=== PATIENT | male | born 1970 | race Caucasian/White ===

== ENCOUNTER 2021-05-06 15:23 | Emergency (ER) | payer MEDICARE, OTHER ==
--- NOTE | 2021-05-06 16:58 | EDM.PDOCBH ---
ED HPI GENERAL MEDICAL PROBLEM - General Chief Complaint: Behavioral/Psych Stated Complaint: MENTAL EVAL Time Seen by Provider: 05/06/21 16:05 Source of Information: Reports: Patient, RN Notes Reviewed - History of Present Illness INITIAL COMMENTS - FREE TEXT/NARRATIVE: 50 yr old male has been brought here by staff from [facility]. He does have hx of Bipolar 1 disorder, Explosive disorder and mild mental retardation. He is brought here today with concern over unpredictable and threatening behaviors to family members, (mother, sister and sister) He is reported to celi demonstrated sudden onset threatening verbal and physical behaviors at [facility] this afternoon a short time ago. He is supposed to be taking Risperdal and one other psych med but family does not know if he has been compliant with that. He lives alone, his mother, sister and her family live about 2 miles away. His mother has total control of his finances. ED ROS GENERAL - Review of Systems Review Of Systems: See Below Constitutional: Denies: Fever, Diaphoresis HEENT: Reports: No Symptoms Respiratory: Denies: Shortness of Breath, Cough Cardiovascular: Denies: Chest Pain GI/Abdominal: Denies: Abdominal Pain, Nausea, Vomiting Musculoskeletal: Reports: No Symptoms Skin: Reports: No Symptoms Neurological: Reports: No Symptoms Psychiatric: Reports: Agitation, Mood Lability, Other (Threatening verbal and physical behaviors to family and to [facility] staff) ED EXAM, BEHAVIORAL HEALTH - Physical Exam Exam: See Below General Appearance: Alert, No Apparent Distress (at time of exam, smiling, coope rative with exam, knows where he is at) Head: Atraumatic Neck: Supple Respiratory/Chest: No Respiratory Distress, Lungs Clear, Normal Breath Sounds Cardiovascular: Regular Rate, Rhythm Extremities: Normal Inspection, Normal Range of Motion Neurological: Alert, No Motor/Sensory Deficits, Oriented x 3 Psychiatric: Alert, Grandiose Thoughts, Pressured Speech Skin Exam: Warm, Dry, Normal color COURSE, BEHAVIORAL HEALTH COMP - Course Orders, Labs, Meds: Active Orders 24 hr Category Date Time Status CORONAVIRUS COVID-19 MIKAELA [MOLEC] Stat Lab 05/06/21 18:00 Received Laboratory Tests 05/06/21 05/06/21 05/06/21 Range/Units 16:35 16:35 17:37 WBC 10.41 H (4.23-9.07) K/mm3 RBC 5.36 (4.63-6.08) M/mm3 Hgb 16.3 (13.7-17.5) gm/dl Hct 47.3 (40.1-51.0) % MCV 88.2 (79.0-92.2) fl MCH 30.4 (25.7-32.2) pg MCHC 34.5 (32.2-35.5) g/dl RDW Std Deviation 43.5 (35.1-43.9) fL Plt Count 233 (163-337) K/mm3 MPV 10.3 (9.4-12.3) fl Neut % (Auto) 77.4 H (34.0-67.9) % Lymph % (Auto) 11.0 L (21.8-53.1) % [place] % (Auto) 9.9 (5.3-12.2) % Eos % (Auto) 1.0 (0.8-7.0) Baso % (Auto) 0.5 (0.1-1.2) % Neut # (Auto) 8.06 H (1.78-5.38) K/mm3 Lymph # (Auto) 1.15 L (1.32-3.57) K/mm3 [place] # (Auto) 1.03 H (0.30-0.82) K/mm3 Eos # (Auto) 0.10 (0.04-0.54) K/mm3 Baso # (Auto) 0.05 (0.01-0.08) K/mm3 Manual Slide Review Sodium 142 (136-145) mEq/L Potassium 3.7 (3.5-5.1) mEq/L Chloride 106 (98-107) mEq/L Carbon Dioxide 22 (21-32) mEq/L Anion Gap 17.7 H (5-15) BUN 16 (7-18) mg/dL Creatinine 1.2 (0.7-1.3) mg/dL Est Cr Clr Drug Dosing 86.06 mL/min Estimated GFR (MDRD) > 60 (>60) mL/min BUN/Creatinine Ratio 13.3 L (14-18) Glucose 166 H (70-99) mg/dL Calcium 9.0 (8.5-10.1) mg/dL Total Bilirubin 0.5 (0.2-1.0) mg/dL AST 25 (15-37) U/L ALT 44 (16-63) U/L Alkaline Phosphatase 67 (46-116) U/L Total Protein 8.1 (6.4-8.2) g/dl Albumin 4.2 (3.4-5.0) g/dl Globulin 3.9 gm/dL Albumin/Globulin Ratio 1.1 (1-2) Urine Opiates Screen Negative (ZEJKQH=002) Ur Buprenorphine Scrn Negative (CUTOFF=10) Ur Oxycodone Screen Negative (ENT4AV=302) Urine Methadone Screen Negative (YRH3IT=406) Ur Propoxyphene Screen Negative (POAMJM=752) Ur Barbiturates Screen Negative (VPNPXJ=284) Ur Tricyclics Screen Negative (QTJJVL=962) Ur Phencyclidine Scrn Negative (CUTOFF=25) Ur Amphetamine Screen Negative (VLFZGV=655) U Methamphetamines Scrn Negative (IOPVBE=231) U Benzodiazepines Scrn Negative (ALJLDG=969) U Cocaine Metab Screen Negative (BJSHTI=764) U Marijuana (THC) Screen Negative (CUTOFF=50) Ethyl Alcohol 0.00 (0.00) gm% Medications Discontinued Medications Generic Name Dose Route Start Last Admin Trade Name Freq PRN Reason Stop Dose Admin Lorazepam 1 mg 05/06/21 17:50 05/06/21 18:21 Lorazepam 1 Mg Tab PO 05/06/21 17:51 1 mg ONETIME ONE Administration Olanzapine 10 mg 05/06/21 17:50 05/06/21 18:22 Olanzapine 5 Mg Tab PO 05/06/21 17:51 10 mg ONETIME ONE Administration Re-Assessment/Re-Exam: Pt does not appear to be psychotic at time of exam, does appear to have a low level of understanding, is delusional, thinks he is going to be moving to [place] shortly. Is not showing any insight to his current psych condition. [facility] discussed with [facility]. They do have a psych bed available. Dr Borja, psychiatrist is accepting patient for transfer. Have ordered appropriate labs and a covid screen. Will plan to send him with [facility] deputies. Tashia, our social services director has filled out a 24 hr hold signed by Psychologist involved with his care today from [facility]. . Departure - Departure Time of Disposition: 17:30 Disposition: DC/Tfer to Acute Hospital 02 Condition: Serious Clinical Impression: Threatening behavior - Discharge Information Referrals: Zulma Matta PA [Primary Care Provider] - Forms: ED Department Discharge - My Orders Last 24 Hours: My Active Orders 05/06/21 18:00 CORONAVIRUS COVID-19 MIKAELA [MOLEC] Stat - Assessment/Plan Last 24 Hours: My Active Orders 05/06/21 18:00 CORONAVIRUS COVID-19 MIKAELA [MOLEC] Stat
[2021-05-06] MEDS ORDERED: OLANZapine 5 MG Tab PO ONE (17:50)
[2021-05-06] MEDS ORDERED: LORazepam 1 MG Tab PO ONE (17:50)
== END 2021-05-06 19:12 ==
LOC: JD.ED 15:23
DX: R46.89 Other symptoms and signs involving appearance and behavior (principal); Z20.822 Contact with and (suspected) exposure to COVID-19
CPT/HCPCS: 36415; 80053; 80306; 80307; 85025; 99283; 99285; A9270-GY; U0002